=== PATIENT | female | born 1950 | race American Indian/Alaskan Native ===

== ENCOUNTER 2020-05-03 08:48 | Inpatient (IN) | payer MEDICARE ==
[2020-05-03] MEDS ORDERED: FAMOTIDINE 20 MG/2 ML INJ IV ONE (10:15)
[2020-05-03] MEDS ORDERED: SODIUM CHLORIDE 0.9% 1000 ML 1,000 ML IV ONE ×2 (10:15→12:09)
[2020-05-03] MEDS ORDERED: ONDANSETRON 4 MG/2 ML INJ IV ONE (10:15)
[2020-05-03] MEDS ORDERED: PANTOPRAZOLE 40 MG INJ IV ONE (10:15)
--- NOTE | 2020-05-03 11:03 | Emergency Department Report ---
ED GI Bleed HPI - General Chief complaint: GI Bleed Stated complaint: VOMITING BLOOD/WEAKNESS Time Seen by Provider: 05/03/20 10:04 Source: patient, EMS Mode of arrival: Stretcher Limitations: No Limitations - History of Present Illness Initial comments: Patient is a 69-year-old F O[place]i female with past medical history of hypertension diabetes who is presenting with upper GI bleed. Patient states is been vomiting since overnight. States there was coffee-ground type emesis. She denies abdominal pain but states she has some weakness. States there is been no fevers chills diarrhea cough cold or congestion. Patient states that she has not had these symptoms in the past. Severity scale (0 -10): 0 - Related Data Home Medications Medication Instructions Recorded Confirmed Last Taken Acetaminophen [7T Gummy Es] 500 mg PO ONCE 05/03/20 05/03/20 Unknown Meclizine HCl [Meclizine CHEW] 25 mg PO ONCE PRN 05/03/20 05/03/20 Unknown hydroCHLOROthiazide [HCTZ] 25 mg PO QDAY 05/03/20 05/03/20 Unknown Previous Rx's Medication Instructions Recorded Last Taken Type Loratadine (Nf) [Claritin] 10 mg PO DAILY #30 tablet 12/03/14 10/09/15 Rx amLODIPine [Norvasc] 5 mg PO DAILY #30 tab 12/03/14 10/09/15 Rx metFORMIN [Glucophage] 500 mg PO DAILY #30 tablet 12/03/14 10/09/15 Rx Allergies Allergy/AdvReac Type Severity Reaction Status Date / Time aspirin Allergy Nausea Verified 05/03/20 09:29 codeine Allergy Nausea Verified 05/03/20 09:29 hydrocodone Allergy Nausea Verified 05/03/20 09:29 lisinopril Allergy Swelling Verified 05/03/20 09:29 methylergonovine maleate Allergy Nausea Verified 05/03/20 09:29 [From Methergine] ED Review of Systems ROS: Stated complaint: VOMITING BLOOD/WEAKNESS Other details as noted in HPI Comment: All other systems reviewed and negative ED Past Medical Hx - Past Medical History Hx Hypertension: Yes Hx Diabetes: Yes Additional medical history: DJD - Surgical History Additional Surgical History: Tubaligation, left hand cyst - Social History Smoking Status: Current Some Day Smoker - Medications Home Medications: Home Medications Medication Instructions Recorded Confirmed Last Taken Type Loratadine (Nf) [Claritin] 10 mg PO DAILY #30 tablet 12/03/14 05/03/20 10/09/15 Rx amLODIPine [Norvasc] 5 mg PO DAILY #30 tab 12/03/14 05/03/20 10/09/15 Rx metFORMIN [Glucophage] 500 mg PO DAILY #30 tablet 12/03/14 05/03/20 10/09/15 Rx Acetaminophen [7T Gummy Es] 500 mg PO ONCE 05/03/20 05/03/20 Unknown History Meclizine HCl [Meclizine CHEW] 25 mg PO ONCE PRN 05/03/20 05/03/20 Unknown History hydroCHLOROthiazide [HCTZ] 25 mg PO QDAY 05/03/20 05/03/20 Unknown History ED Physical Exam - General Limitations: No Limitations General appearance: alert, in no apparent distress - Head Head exam: Present: atraumatic, normocephalic - Eye Eye exam: Present: normal appearance, PERRL, EOMI - ENT ENT exam: Present: mucous membranes moist - Neck Neck exam: Present: normal inspection - Respiratory Respiratory exam: Present: normal lung sounds bilaterally. Absent: respiratory distress, wheezes, rales, rhonchi - Cardiovascular Cardiovascular Exam: Present: regular rate, normal rhythm, normal heart sounds. Absent: systolic murmur, diastolic murmur, rubs, gallop - GI/Abdominal GI/Abdominal exam: Present: soft, normal bowel sounds. Absent: distended, tenderness, guarding, rebound - Extremities Exam Extremities exam: Present: normal inspection - Back Exam Back exam: Present: normal inspection - Neurological Exam Neurological exam: Present: alert, oriented X3 - Psychiatric Psychiatric exam: Present: normal affect, normal mood - Skin Skin exam: Present: warm, dry, intact, normal color. Absent: rash ED Course Vital Signs 05/03/20 05/03/20 05/03/20 09:00 09:03 09:46 Temperature 98.7 F Pulse Rate 113 H 109 H 111 H Respiratory 17 17 17 Rate Blood Pressure 110/62 107/62 Blood Pressure 109/64 [Left] O2 Sat by Pulse 93 97 97 Oximetry 05/03/20 05/03/20 10:46 12:00 Temperature Pulse Rate 107 H Respiratory 18 Rate Blood Pressure 108/61 102/60 Blood Pressure [Left] O2 Sat by Pulse 99 98 Oximetry ED Medical Decision Making - Lab Data Result diagrams: 05/03/20 10:38 05/03/20 10:38 Lab Results 05/03/20 05/03/20 05/03/20 Range/Units 10:38 10:38 10:38 WBC 8.2 (4.5-11.0) K/mm3 RBC 2.55 L (3.65-5.03) M/mm3 Hgb 8.3 L (10.1-14.3) gm/dl Hct 23.6 L (30.3-42.9) % MCV 93 (79-97) fl MCH 33 H (28-32) pg MCHC 35 H (30-34) % RDW 15.7 H (13.2-15.2) % Plt Count 112 L (140-440) K/mm3 Add Manual Diff Complete Total Counted 100 Seg Neuts % (Manual) 83.0 H (40.0-70.0) % Band Neutrophils % 1.0 % Lymphocytes % (Manual) 10.0 L (13.4-35.0) % Reactive Lymphs % (Man) 0 % Monocytes % (Manual) 5.0 (0.0-7.3) % Eosinophils % (Manual) 0 (0.0-4.3) % Basophils % (Manual) 0 (0.0-1.8) % Metamyelocytes % 1.0 % Myelocytes % 0 % Promyelocytes % 0 % Blast Cells % 0 % Nucleated RBC % Not Reportable Seg Neutrophils # Man 6.8 (1.8-7.7) K/mm3 Band Neutrophils # 0.1 K/mm3 Lymphocytes # (Manual) 0.8 L (1.2-5.4) K/mm3 Abs React Lymphs (Man) 0.0 K/mm3 Monocytes # (Manual) 0.4 (0.0-0.8) K/mm3 Eosinophils # (Manual) 0.0 (0.0-0.4) K/mm3 Basophils # (Manual) 0.0 (0.0-0.1) K/mm3 Metamyelocytes # 0.1 K/mm3 Myelocytes # 0.0 K/mm3 Promyelocytes # 0.0 K/mm3 Blast Cells # 0.0 K/mm3 WBC Morphology Not Reportable Hypersegmented Neuts Not Reportable Hyposegmented Neuts Not Reportable Hypogranular Neuts Not Reportable Smudge Cells Not Reportable Toxic Granulation Not Reportable Toxic Vacuolation Not Reportable Dohle Bodies Not Reportable Pelger-Huet Anomaly Not Reportable Virgil Rods Not Reportable Platelet Estimate Consistent w auto Clumped Platelets Not Reportable Plt Clumps, EDTA Not Reportable Large Platelets Not Reportable Giant Platelets Rare Platelet Satelliting Not Reportable Plt Morphology Comment Not Reportable RBC Morphology Not Reportable Dimorphic RBCs Not Reportable Polychromasia Not Reportable Hypochromasia Not Reportable Poikilocytosis Few Anisocytosis Few Microcytosis Not Reportable Macrocytosis Not Reportable Spherocytes Not Reportable Pappenheimer Bodies Not Reportable Sickle Cells Not Reportable Target Cells 2+ Tear Drop Cells Not Reportable Ovalocytes Not Reportable Helmet Cells Not Reportable Cannon-[place] Bodies Not Reportable [place] Rings Not Reportable [place] Cells Not Reportable Bite Cells Not Reportable Crenated Cell Not Reportable Elliptocytes Not Reportable Acanthocytes (Spur) Not Reportable Rouleaux Not Reportable Hemoglobin C Crystals Not Reportable Schistocytes Not Reportable Malaria parasites Not Reportable Ash Bodies Not Reportable Hem Pathologist Commnt No PT 18.9 H (12.2-14.9) Sec. INR 1.56 H (0.87-1.13) APTT 40.2 H (24.2-36.6) Sec. Sodium 130 L (137-145) mmol/L Potassium 3.2 L (3.6-5.0) mmol/L Chloride 87.6 L (98-107) mmol/L Carbon Dioxide 28 (22-30) mmol/L Anion Gap 18 mmol/L BUN 11 (7-17) mg/dL Creatinine 1.1 (0.6-1.2) mg/dL Estimated GFR 60 ml/min BUN/Creatinine Ratio 10 % Glucose 160 H (65-100) mg/dL Calcium 8.2 L (8.4-10.2) mg/dL Total Bilirubin 8.20 H (0.1-1.2) mg/dL AST 159 H (5-40) units/L ALT 42 (7-56) units/L Alkaline Phosphatase 163 H (35-129) units/L Total Protein 6.4 (6.3-8.2) g/dL Albumin 2.4 L (3.9-5) g/dL Albumin/Globulin Ratio 0.6 % Lipase 23 (13-60) units/L - Medical Decision Making Patient is a 69-year-old F [place] female who is presenting with GI bleed. NG tube was inserted by nursing staff which did show coffee-ground emesis and very dark-colored gastric contents consistent with upper GI bleed. Patient did have elevation of her ALT and bilirubin. CT has been ordered. GI will be consulted and the patient will be admitted to the hospitalist service for further management. Critical Care Time: Yes (30) Critical care attestation.: If time is entered above; I have spent that time in minutes in the direct care of this critically ill patient, excluding procedure time. ED Disposition Clinical Impression: Upper GI hemorrhage, Hyperbilirubinemia, Dehydration, Hyponatremia Disposition: OP ADMIT IP TO THIS HOSP Is pt being admited?: Yes Does the pt Need Aspirin: No Condition: Stable Forms: Accompanied Note Time of Disposition: 12:31
[2020-05-03 11:20] LABS: INR 1.56 (0.87-1.13)
[2020-05-03 11:21] LABS: Partial Thromboplastin Time 40.2 Sec. (24.2-36.6)
[2020-05-03 11:29] LABS: Hematocrit 23.6 % (30.3-42.9); Hemoglobin 8.3 gm/dl (10.1-14.3); Mean Corpuscular HGB Conc 35 % (30-34); Mean Corpuscular Volume 93 fl (79-97); Platelet Count 112 K/mm3 (140-440); Red Blood Count 2.55 M/mm3 (3.65-5.03); Red Cell Distribution Width 15.7 % (13.2-15.2)
[2020-05-03 12:01] LABS: Albumin 2.4 g/dL (3.9-5); Anisocytosis Few; Band Neutrophils # (Manual) 0.1 K/mm3; Basophils % (Manual) 0 % (0.0-1.8); Calcium 8.2 mg/dL (8.4-10.2); Eosinophils % (Manual) 0 % (0.0-4.3); Poikilocytosis Few; Total Cells Counted 100
[2020-05-03 12:02] LABS: Giant Platelets Rare; Platelet Estimate Consistent w Auto; Target Cells 2+
--- NOTE | 2020-05-03 13:08 | Cat Scan Report ---
CT abdomen pelvis w con INDICATION: gi bleed. TECHNIQUE: All CT scans at this location are performed using the following dose modulation technique: Automated exposure control. CONTRAST: Omnipaque 300, 100 cc COMPARISON: None available. CT ABDOMEN: Evaluation of the parenchymal organs demonstrates a cirrhotic configuration of the liver. Multiple regenerative nodules are seen throughout both hepatic lobes measuring less than 1 cm. A hyp odense lesion within the lateral aspect of the right hepatic lobe (series 2, image 43) measures 1.9 c m. The remaining parenchymal organs including the spleen are unremarkable. Large varices are seen at the gastrohepatic ligament. A large splenorenal shunt is present. Mild ascites and mild small bowel and colonic thickening is seen. Negative for bowel distention. The gallbladder contains stones. Diffuse symmetric wall edema is present without adjacent inflammatio n. CT PELVIS: The appendix is normal. Mild ascites is seen. IMPRESSION: 1. Cirrhosis with portal hypertension including varices, mild ascites and nodular regeneration of the liver. 2. Indeterminate right hepatic lesion. Follow-up multiphase CT is recommended. 3. Gallstones with symmetric gallbladder wall edema. This is likely on the basis of underlying hepati c disease. 4. Mild thickening of the colon and proximal small bowel is nonspecific in the setting of hepatic dis ease. Signer Name: Juan Vaughn MD Signed: 05/03/2020 1:04 PM Workstation Name: [id number]
--- NOTE | 2020-05-03 13:09 | XRay Report ---
ABDOMEN 1 VIEW(S) INDICATION / CLINICAL INFORMATION: NGT placement. COMPARISON: None available. FINDINGS: TUBES / LINES: NG tube in satisfactory position. BOWEL GAS PATTERN: No significant abnormality. ADDITIONAL FINDINGS: No significant additional findings. IMPRESSION: Satisfactory NG tube placement. Signer Name: Juan Vaughn MD Signed: 05/03/2020 1:05 PM Workstation Name: [id number]
[2020-05-03] MEDS ORDERED: SODIUM CHLORIDE 0.9% 1000 ML 1,000 ML ONE (13:23)
[2020-05-03] MEDS: PANTOPRAZOLE 80 MG in SODIUM CHLORIDE 0.9% 100 ML IV SCH (13:24)
[2020-05-03] MEDS ORDERED: WATER FOR IRRIG STERILE 1,000 ML BOTTLE ONE (13:36)
[2020-05-03] MEDS ORDERED: WATER FOR IRRIG STERILE 250 ML BOTTLE IR ONE (13:36)
--- NOTE | 2020-05-03 13:58 | Anesthesia Day of Surgery ---
Anesthesia Day of Surgery - Day of Surgery Patient Examined: Yes Patient H&P Reviewed: Yes Patient is NPO: Yes
--- NOTE | 2020-05-03 13:59 | Anesthesia Consultation ---
Anesthesia Consult and Med Hx Date of service: 05/03/20 - Airway Anesthetic Teeth Evaluation: Poor (Loose) ROM Head & Neck: Adequate Mental/Hyoid Distance: Adequate Mallampati Class: Class III Intubation Access Assessment: Probably Good - Pre-Operative Health Status ASA Pre-Surgery Classification: ASA3, Emergency Proposed Anesthetic Plan: MAC - Pulmonary Hx Smoking: Yes (1-2 cig per day) - Cardiovascular System Hx Hypertension: Yes - Central Nervous System Hx Neuromuscular Disorder: Yes (rheumatoid arthritis. Limited activity-tree fell on her) - Gastrointestinal Hx Gastroesophageal Reflux Disease: Yes (UGI bleed now) - Endocrine Hx Liver Disease: Yes (Elevated LFTs) Hx Non-Insulin Dependent Diabetes: Yes (metformin) - Hematic Hx Anemia: Yes Hx Sickle Cell Disease: No
[2020-05-03] MEDS ORDERED: propofoL 200 MG/20 ML VIAL IV ONE (14:01)
[2020-05-03] MEDS ORDERED: LIDOCAINE MPF (2%) 20 MG/1 ML VIAL 5 ML ONE (15:04)
--- NOTE | 2020-05-03 15:48 | Operative Report ---
PROCEDURE: Esophagogastroduodenoscopy with bleeding therapy. INDICATIONS: 1. Anemia. 2. Gastrointestinal bleed. MEDICATIONS: Propofol per FILLER SHAKER. COMPLICATIONS: None. DESCRIPTION OF PROCEDURE: The patient brought to procedure suite. The patient had the procedure discussed with her at length. All risks, complications, and benefits discussed, which the patient signed for the procedure to be performed. The patient was placed in left lateral decubitus position. Mouth block was placed in the patient's oral cavity. After adequate sedation medication as above, endoscope placed in the mouth and brought to level of the second portion of duodenum. Retroflexion view performed. The patient's vital signs remained stable throughout the procedure. FINDINGS: There was possible grade 1 varices noted in the distal esophagus, but no stigmata or signs of bleeding were noted. A small linear tear was noted at the GE junction, but no stigmata of bleeding was noted from that area. The remaining esophagus otherwise appeared to be normal. There is old blood that was suctioned and removed from the stomach. In the proximal antrum along the area of the lesser curvature, there was noted to be approximately 8 mm pigmented vessel with a very small clot. Whether or not this may represent a Dieulafoy lesion. No active bleeding was noted from this area. Extensive search was made of the remaining stomach as well as duodenum with no other etiology noted. This may have been the source of bleeding. A heater probe was applied to this area with good result. Post-procedure appearance was satisfactory. The patient tolerated the procedure well. No complications during the procedure. IMPRESSION: 1. Possible grade 1 varices, but no stigmata of bleeding noted along the esophagus. 2. Medium hiatal hernia. 3. Old blood was removed from the stomach. 4. Pigmented vessel, proximal antrum, status post bleeding therapy. 5. Otherwise, benign EGD. RECOMMENDATIONS: 1. Follow hematocrit and transfuse as needed. 2. PPI b.i.d. 3. We will review CT scan when results available. 4. We will assess for possible liver disease. 5. We will followup in a.m. JOB# [id number] [facility]
[2020-05-03] MEDS ORDERED: ONDANSETRON 4 MG/2 ML INJ IV PRN (16:13)
[2020-05-03] MEDS ORDERED: ACETAMINOPHEN 325 MG TAB PO PRN (16:13)
--- NOTE | 2020-05-03 16:16 | History and Physical Report ---
History of Present Illness Date of examination: 05/03/20 Date of admission: 05/03/20 12:32 Chief complaint: Coffee ground emesis History of present illness: 69-year-old female with a medical history of hypertension, liver disease admitted with chief complaint of bloody vomiting. She mentioned that she has multiple episodes of coffee-ground vomiting for the past 24 hours. She reports any previous history of similar episode. She denies abdominal pain but states sh e has some weakness. States there is been no fevers chills diarrhea cough cold or congestion. Patient states that she has not had these symptoms in the past Past History Past Medical History: hypertension, liver disease Social history: alcohol abuse Medications and Allergies Allergies Allergy/AdvReac Type Severity Reaction Status Date / Time aspirin Allergy Nausea Verified 05/03/20 09:29 codeine Allergy Nausea Verified 05/03/20 09:29 hydrocodone Allergy Nausea Verified 05/03/20 09:29 lisinopril Allergy Swelling Verified 05/03/20 09:29 methylergonovine maleate Allergy Nausea Verified 05/03/20 09:29 [From Methergine] Home Medications Medication Instructions Recorded Confirmed Last Taken Type Loratadine (Nf) [Claritin] 10 mg PO DAILY #30 tablet 12/03/14 05/03/20 10/09/15 Rx amLODIPine [Norvasc] 5 mg PO DAILY #30 tab 12/03/14 05/03/20 10/09/15 Rx metFORMIN [Glucophage] 500 mg PO DAILY #30 tablet 12/03/14 05/03/20 10/09/15 Rx Acetaminophen [7T Gummy Es] 500 mg PO ONCE 05/03/20 05/03/20 Unknown History Meclizine HCl [Meclizine CHEW] 25 mg PO ONCE PRN 05/03/20 05/03/20 Unknown History hydroCHLOROthiazide [HCTZ] 25 mg PO QDAY 05/03/20 05/03/20 Unknown History Active Meds: Active Medications Sodium Chloride (Nacl 0.9% 1000 Ml) 1,000 mls @ 125 mls/hr IV ONCE ONE Stop: 05/03/20 20:08 Last Admin: 05/03/20 12:59 Dose: 125 mls/hr Documented by: Pantoprazole Sodium 80 mg/ (Sodium Chloride) 100 mls @ 10 mls/hr IV DIRECT FAUSTO Last Admin: 05/03/20 13:24 Dose: 8 mg/hr, 10 mls/hr Documented by: Sodium Chloride (Nacl 0.9% 1000 Ml) 1,000 mls @ 50 mls/hr IV DIRECT FAUSTO Review of Systems Gastrointestinal: coffee ground emesis (resolved) Exam - Constitutional Vitals: Temp Pulse Resp BP Pulse Ox 97.5 F L 94 H 18 116/77 96 05/03/20 14:48 05/03/20 15:04 05/03/20 15:04 05/03/20 15:04 05/03/20 15:04 General appearance: Present: no acute distress, well-nourished - EENT Eyes: Present: PERRL ENT: hearing intact, clear oral mucosa - Neck Neck: Present: supple, normal ROM - Respiratory Respiratory effort: normal Respiratory: bilateral: CTA - Cardiovascular Heart Sounds: Present: S1 & S2. Absent: rub, click - Extremities Extremities: pulses symmetrical, No edema Peripheral Pulses: within normal limits - Abdominal General gastrointestinal: Present: soft, distended, normal bowel sounds Female genitourinary: Present: normal - Integumentary Integumentary: Present: clear, warm, dry - Musculoskeletal Musculoskeletal: gait normal, strength equal bilaterally - Psychiatric Psychiatric: appropriate mood/affect, intact judgment & insight - Neurologic Neurologic: CNII-XII intact, moves all extremities Results - Labs CBC & Chem 7: 05/04/20 04:49 05/04/20 04:49 Labs: Laboratory Last Values WBC 8.2 K/mm3 (4.5-11.0) 05/03/20 10:38 RBC 2.55 M/mm3 (3.65-5.03) L 05/03/20 10:38 Hgb 8.3 gm/dl (10.1-14.3) L 05/03/20 10:38 Hct 23.6 % (30.3-42.9) L 05/03/20 10:38 MCV 93 fl (79-97) 05/03/20 10:38 MCH 33 pg (28-32) H 05/03/20 10:38 MCHC 35 % (30-34) H 05/03/20 10:38 RDW 15.7 % (13.2-15.2) H 05/03/20 10:38 Plt Count 112 K/mm3 (140-440) L 05/03/20 10:38 Add Manual Diff Complete 05/03/20 10:38 Total Counted 100 05/03/20 10:38 Seg Neuts % (Manual) 83.0 % (40.0-70.0) H 05/03/20 10:38 Band Neutrophils % 1.0 % 05/03/20 10:38 Lymphocytes % (Manual) 10.0 % (13.4-35.0) L 05/03/20 10:38 Reactive Lymphs % (Man) 0 % 05/03/20 10:38 Monocytes % (Manual) 5.0 % (0.0-7.3) 05/03/20 10:38 Eosinophils % (Manual) 0 % (0.0-4.3) 05/03/20 10:38 Basophils % (Manual) 0 % (0.0-1.8) 05/03/20 10:38 Metamyelocytes % 1.0 % 05/03/20 10:38 Myelocytes % 0 % 05/03/20 10:38 Promyelocytes % 0 % 05/03/20 10:38 Blast Cells % 0 % 05/03/20 10:38 Nucleated RBC % Not Reportable 05/03/20 10:38 Seg Neutrophils # Man 6.8 K/mm3 (1.8-7.7) 05/03/20 10:38 Band Neutrophils # 0.1 K/mm3 05/03/20 10:38 Lymphocytes # (Manual) 0.8 K/mm3 (1.2-5.4) L 05/03/20 10:38 Abs React Lymphs (Man) 0.0 K/mm3 05/03/20 10:38 Monocytes # (Manual) 0.4 K/mm3 (0.0-0.8) 05/03/20 10:38 Eosinophils # (Manual) 0.0 K/mm3 (0.0-0.4) 05/03/20 10:38 Basophils # (Manual) 0.0 K/mm3 (0.0-0.1) 05/03/20 10:38 Metamyelocytes # 0.1 K/mm3 05/03/20 10:38 Myelocytes # 0.0 K/mm3 05/03/20 10:38 Promyelocytes # 0.0 K/mm3 05/03/20 10:38 Blast Cells # 0.0 K/mm3 05/03/20 10:38 WBC Morphology Not Reportable 05/03/20 10:38 Hypersegmented Neuts Not Reportable 05/03/20 10:38 Hyposegmented Neuts Not Reportable 05/03/20 10:38 Hypogranular Neuts Not Reportable 05/03/20 10:38 Smudge Cells Not Reportable 05/03/20 10:38 Toxic Granulation Not Reportable 05/03/20 10:38 Toxic Vacuolation Not Reportable 05/03/20 10:38 Dohle Bodies Not Reportable 05/03/20 10:38 Pelger-Huet Anomaly Not Reportable 05/03/20 10:38 Virgil Rods Not Reportable 05/03/20 10:38 Platelet Estimate Consistent w auto 05/03/20 10:38 Clumped Platelets Not Reportable 05/03/20 10:38 Plt Clumps, EDTA Not Reportable 05/03/20 10:38 Large Platelets Not Reportable 05/03/20 10:38 Giant Platelets Rare 05/03/20 10:38 Platelet Satelliting Not Reportable 05/03/20 10:38 Plt Morphology Comment Not Reportable 05/03/20 10:38 RBC Morphology Not Reportable 05/03/20 10:38 Dimorphic RBCs Not Reportable 05/03/20 10:38 Polychromasia Not Reportable 05/03/20 10:38 Hypochromasia Not Reportable 05/03/20 10:38 Poikilocytosis Few 05/03/20 10:38 Anisocytosis Few 05/03/20 10:38 Microcytosis Not Reportable 05/03/20 10:38 Macrocytosis Not Reportable 05/03/20 10:38 Spherocytes Not Reportable 05/03/20 10:38 Pappenheimer Bodies Not Reportable 05/03/20 10:38 Sickle Cells Not Reportable 05/03/20 10:38 Target Cells 2+ 05/03/20 10:38 Tear Drop Cells Not Reportable 05/03/20 10:38 Ovalocytes Not Reportable 05/03/20 10:38 Helmet Cells Not Reportable 05/03/20 10:38 Cannon-[place] Bodies Not Reportable 05/03/20 10:38 [place] Rings Not Reportable 05/03/20 10:38 [place] Cells Not Reportable 05/03/20 10:38 Bite Cells Not Reportable 05/03/20 10:38 Crenated Cell Not Reportable 05/03/20 10:38 Elliptocytes Not Reportable 05/03/20 10:38 Acanthocytes (Spur) Not Reportable 05/03/20 10:38 Rouleaux Not Reportable 05/03/20 10:38 Hemoglobin C Crystals Not Reportable 05/03/20 10:38 Schistocytes Not Reportable 05/03/20 10:38 Malaria parasites Not Reportable 05/03/20 10:38 Ash Bodies Not Reportable 05/03/20 10:38 Hem Pathologist Commnt No 05/03/20 10:38 PT 18.9 Sec. (12.2-14.9) H 05/03/20 10:38 INR 1.56 (0.87-1.13) H 05/03/20 10:38 APTT 40.2 Sec. (24.2-36.6) H 05/03/20 10:38 Sodium 130 mmol/L (137-145) L 05/03/20 10:38 Potassium 3.2 mmol/L (3.6-5.0) L 05/03/20 10:38 Chloride 87.6 mmol/L (98-107) L 05/03/20 10:38 Carbon Dioxide 28 mmol/L (22-30) 05/03/20 10:38 Anion Gap 18 mmol/L 05/03/20 10:38 BUN 11 mg/dL (7-17) 05/03/20 10:38 Creatinine 1.1 mg/dL (0.6-1.2) 05/03/20 10:38 Estimated GFR 60 ml/min 05/03/20 10:38 BUN/Creatinine Ratio 10 % 05/03/20 10:38 Glucose 160 mg/dL (65-100) H 05/03/20 10:38 Calcium 8.2 mg/dL (8.4-10.2) L 05/03/20 10:38 Total Bilirubin 8.20 mg/dL (0.1-1.2) H 05/03/20 10:38 AST 159 units/L (5-40) H 05/03/20 10:38 ALT 42 units/L (7-56) 05/03/20 10:38 Alkaline Phosphatase 163 units/L (35-129) H 05/03/20 10:38 Total Protein 6.4 g/dL (6.3-8.2) 05/03/20 10:38 Albumin 2.4 g/dL (3.9-5) L 05/03/20 10:38 Albumin/Globulin Ratio 0.6 % 05/03/20 10:38 Lipase 23 units/L (13-60) 05/03/20 10:38 Dunn/IV: Voiding Method Toilet IV Catheter Type [Left Peripheral IV Antecubital] Assessment and Plan - Patient Problems (1) Upper GI hemorrhage Current Visit: Yes Status: Acute Plan to address problem: Has coffee ground emesis - multiple episodes. Trend H/H GI to do EGD Protonix Zofran for vomiting (2) Hyponatremia Current Visit: Yes Status: Acute Plan to address problem: Trend sodium (3) Hyperbilirubinemia Current Visit: Yes Status: Acute Plan to address problem: Likely from alcohol abuse Will continue to monitor (4) Hypertension Current Visit: Yes Status: Acute Plan to address problem: Monitor BP (5) Alcoholic liver disease Current Visit: Yes Status: Acute Plan to address problem: Drinks alcohol occasionally Last drink was 2 days ago She has elevated LFTs with elevated bilirubin Her INR is also elevated. Patient has been advised to stop alcohol use (6) DVT prophylaxis Current Visit: Yes Status: Acute Plan to address problem: No chemical prophylaxis.
--- NOTE | 2020-05-03 18:26 | Post Operative Note ---
Pre-op diagnosis: gi bleed Post-op diagnosis: same Findings: EGD: hiatal hernia - gastritis - pigmented vessel antrum w/ erythema, probable source, s/p gold probe treatment - negative other Procedure: EGD w/ bleeding therapy Anesthesia: MAC Surgeon: LULU HUGHES Estimated blood loss: none Pathology: list Specimen disposition: to lab Condition: stable Disposition: floor
[2020-05-03] MEDS: POTASSIUM CHLORIDE 10 MEQ 10 MEQ/100 ML BAG IV SCH ×3 (19:23→23:29)
[2020-05-04] MEDS: POTASSIUM CHLORIDE 10 MEQ 10 MEQ/100 ML BAG IV SCH (01:42)
--- NOTE | 2020-05-04 02:31 | Consultation ---
REFERRING PHYSICIAN: La Crowe MD INDICATION: 1. Gastrointestinal bleed. 2. Anemia. HISTORY OF PRESENT ILLNESS: The patient is a 69-year-old black female with history of hypertension, diabetes, presents for upper GI bleed. The patient reports 1 day of coffee-ground emesis. She reports aspirin use. She denies any history of GI bleeding in the past. She denies melena. The patient subsequently came to Emergency Room, was evaluated and admitted and GI consulted. She denies any other specific complaints. PAST MEDICAL HISTORY: 1. Hypertension. 2. Diabetes. MEDICATIONS: Reviewed and updated in chart. ALLERGIES: No known drug allergies. SOCIAL HISTORY: Denies alcohol, tobacco or drug abuse. FAMILY HISTORY: Negative for colon cancer, IBD, or liver disease. REVIEW OF SYSTEMS: GENERAL: Reports some mild weakness. HEENT: No visual complaints or tinnitus. PULMONARY: No shortness of breath. No cough. No chest pain. GASTROINTESTINAL: Reports hematemesis. All points of 13-point review of systems otherwise negative. PHYSICAL EXAMINATION: VITAL SIGNS: Temperature of 98.7, pulse 111, respirations 18, blood pressure 118/66. GENERAL: Fairly nourished female, in no acute distress. HEENT: Pupils equal, round and reactive. PULMONARY: Clear to auscultation bilaterally. CARDIOVASCULAR: Regular rate and rhythm. Normal S1, S2. ABDOMEN: nt,nd, soft. SKIN: No obvious rashes. LABORATORY DATA: Pertinent for a white count of 8.2, hemoglobin and hematocrit of 8.3 and 23.6, platelet count of 112. Chem-7: Sodium of 130, potassium 3.2, chloride 87, CO2 of 28, BUN and creatinine of 11 and 1.1, total bilirubin of 8.2. AST and ALT of 159 and 42, alkaline phosphatase of 163. INR of 1.56. CT scan of abdomen and pelvis with contrast results pending. ASSESSMENT AND PLAN: A 69-year-old female with a reported vague history of liver disease and labs, which are more consistent with alcohol like AST, ALT configuration as well as increased liver function tests, now presents with signs and symptoms of upper gastrointestinal bleed. PLAN: 1. We will review CT scan. 2. Follow hematocrit and transfuse as needed. 3. PPI IV b.i.d. 4. Plan EGD today with further recommendation based the EGD results. JOB# [id number] CAB/NTS OCTAVIOD
[2020-05-04] MEDS: PANTOPRAZOLE 80 MG in SODIUM CHLORIDE 0.9% 100 ML IV SCH (03:03)
[2020-05-04] MEDS: SODIUM CHLORIDE 0.9% 1000 ML 1,000 ML IV SCH (04:31)
[2020-05-04 05:28] LABS: Hematocrit 20.9 % (30.3-42.9); Hemoglobin 7.3 gm/dl (10.1-14.3); Mean Corpuscular HGB Conc 35 % (30-34); Mean Corpuscular Volume 93 fl (79-97); Platelet Count 108 K/mm3 (140-440); Red Blood Count 2.25 M/mm3 (3.65-5.03); Red Cell Distribution Width 16.4 % (13.2-15.2)
[2020-05-04 05:38] LABS: Calcium 8.1 mg/dL (8.4-10.2)
[2020-05-04 06:42] LABS: Anisocytosis 1+; Hypochromasia 2+; Total Cells Counted 100
[2020-05-04 06:43] LABS: Ovalocytes Few; Platelet Estimate Consistent w Auto; Spherocytes Few
[2020-05-04 09:03] LABS: Hematocrit 20.4 % (30.3-42.9); Hemoglobin 7.3 gm/dl (10.1-14.3)
[2020-05-04] MEDS ORDERED: ACETAMINOPHEN 325 MG TAB PO PRN (10:12)
[2020-05-04] MEDS: LACTULOSE 20 GM/30 ML ORAL LIQD PO SCH ×2 (10:13→22:34)
--- NOTE | 2020-05-04 10:21 | Gastroenterology Progress Note ---
Assessment and Plan - Patient Problems (1) Cirrhosis Current Visit: Yes Status: Acute Plan to address problem: - Unclear etiology, but obese/diabetic, and old notes in chart mention EtOH abuse. Will send hepatitis panel. - Final read of CT pending, but appears to show SM, cirrhosis, and ascites, and labs consistent with ESLD. - Will start MVI and xifaxan for confusion. - Grade I varices at endoscopy, so will need beta don when stabilized. - Further w/u when mental status improved, but since following commands, and no N/V, OK to advance to clear liquid diet. (2) Upper GI hemorrhage Current Visit: Yes Status: Acute Plan to address problem: - Grade I EV at EGD, but bleeding source appears to be vascular lesion in the antrum - unclear if AVM, or small ulcer with visible vessel. - Will convert protonix to IV BID, not gtt, and advance diet since no further melena/hematemesis. - Avoid all NSAIDs at present given cirrhosis. - Heparin or lovenox SQ for DVT PPY OK starting Wednesday if stable and no gross bleeding. Subjective Date of service: 05/04/20 Principal diagnosis: GIB, Cirrhosis Interval history: The patient has had no hematemesis nor melena overnight. Asking for liquids, but confused per the nursing staff. Denies abdominal pain, and is following commands. Objective - Constitutional Vitals: Temp Pulse Resp BP Pulse Ox 98.0 F 111 H 20 116/58 95 05/04/20 04:29 05/04/20 04:29 05/04/20 04:29 05/04/20 04:29 05/04/20 04:29 General appearance: no acute distress - EENT ENT: hearing intact, clear oral mucosa, poor dentition, no thrush - Neck Neck: supple, normal ROM - Respiratory Respiratory effort: normal Respiratory: bilateral: CTA - Cardiovascular Rhythm: regular Heart Sounds: Present: S1 & S2 - Gastrointestinal General gastrointestinal: Present: soft, non-tender, distended (Moderate ascites) - Labs CBC & Chem 7: 05/04/20 08:31 05/04/20 04:49 Labs: Laboratory Results - last 24 hr 05/03/20 05/03/20 05/03/20 10:38 10:38 10:38 WBC 8.2 RBC 2.55 L Hgb 8.3 L Hct 23.6 L MCV 93 MCH 33 H MCHC 35 H RDW 15.7 H Plt Count 112 L Lymph % (Auto) [place] % (Auto) Eos % (Auto) Baso % (Auto) Lymph # Atlantic # Eos # Baso # Add Manual Diff Complete Total Counted 100 Seg Neuts % (Manual) 83.0 H Band Neutrophils % 1.0 Lymphocytes % (Manual) 10.0 L Reactive Lymphs % (Man) 0 Monocytes % (Manual) 5.0 Eosinophils % (Manual) 0 Basophils % (Manual) 0 Metamyelocytes % 1.0 Myelocytes % 0 Promyelocytes % 0 Blast Cells % 0 Nucleated RBC % Not Reportable Seg Neutrophils # Seg Neutrophils # Man 6.8 Band Neutrophils # 0.1 Lymphocytes # (Manual) 0.8 L Abs React Lymphs (Man) 0.0 Monocytes # (Manual) 0.4 Eosinophils # (Manual) 0.0 Basophils # (Manual) 0.0 Metamyelocytes # 0.1 Myelocytes # 0.0 Promyelocytes # 0.0 Blast Cells # 0.0 WBC Morphology Not Reportable Hypersegmented Neuts Not Reportable Hyposegmented Neuts Not Reportable Hypogranular Neuts Not Reportable Smudge Cells Not Reportable Toxic Granulation Not Reportable Toxic Vacuolation Not Reportable Dohle Bodies Not Reportable Pelger-Huet Anomaly Not Reportable Virgil Rods Not Reportable Platelet Estimate Consistent w auto Clumped Platelets Not Reportable Plt Clumps, EDTA Not Reportable Large Platelets Not Reportable Giant Platelets Rare Platelet Satelliting Not Reportable Plt Morphology Comment Not Reportable RBC Morphology Not Reportable Dimorphic RBCs Not Reportable Polychromasia Not Reportable Hypochromasia Not Reportable Poikilocytosis Few Anisocytosis Few Microcytosis Not Reportable Macrocytosis Not Reportable Spherocytes Not Reportable Pappenheimer Bodies Not Reportable Sickle Cells Not Reportable Target Cells 2+ Tear Drop Cells Not Reportable Ovalocytes Not Reportable Helmet Cells Not Reportable Cannon-Centrahoma Bodies Not Reportable Freeport Rings Not Reportable Tomah Cells Not Reportable Bite Cells Not Reportable Crenated Cell Not Reportable Elliptocytes Not Reportable Acanthocytes (Spur) Not Reportable Rouleaux Not Reportable Hemoglobin C Crystals Not Reportable Schistocytes Not Reportable Malaria parasites Not Reportable Ash Bodies Not Reportable Hem Pathologist Commnt No PT 18.9 H INR 1.56 H APTT 40.2 H Sodium 130 L Potassium 3.2 L Chloride 87.6 L Carbon Dioxide 28 Anion Gap 18 BUN 11 Creatinine 1.1 Estimated GFR 60 BUN/Creatinine Ratio 10 Glucose 160 H Calcium 8.2 L Total Bilirubin 8.20 H AST 159 H ALT 42 Alkaline Phosphatase 163 H Total Protein 6.4 Albumin 2.4 L Albumin/Globulin Ratio 0.6 Lipase 23 05/04/20 05/04/20 05/04/20 04:49 04:49 08:31 WBC 11.5 H RBC 2.25 L Hgb 7.3 L 7.3 L Hct 20.9 L 20.4 L MCV 93 MCH 33 H MCHC 35 H RDW 16.4 H Plt Count 108 L Lymph % (Auto) Not Reportable Atlantic % (Auto) Not Reportable Eos % (Auto) Not Reportable Baso % (Auto) Not Reportable Lymph # Not Reportable [place] # Not Reportable Eos # Not Reportable Baso # Not Reportable Add Manual Diff Complete Total Counted 100 Seg Neuts % (Manual) 32.0 L Band Neutrophils % 0 Lymphocytes % (Manual) 47.0 H Reactive Lymphs % (Man) 0 Monocytes % (Manual) 5.0 Eosinophils % (Manual) 12.0 H Basophils % (Manual) 4.0 H Metamyelocytes % 0 Myelocytes % 0 Promyelocytes % 0 Blast Cells % 0 Nucleated RBC % Not Reportable Seg Neutrophils # Not Reportable Seg Neutrophils # Man 3.7 Band Neutrophils # 0.0 Lymphocytes # (Manual) 5.4 Abs React Lymphs (Man) 0.0 Monocytes # (Manual) 0.6 Eosinophils # (Manual) 1.4 H Basophils # (Manual) 0.5 H Metamyelocytes # 0.0 Myelocytes # 0.0 Promyelocytes # 0.0 Blast Cells # 0.0 WBC Morphology Not Reportable Hypersegmented Neuts Not Reportable Hyposegmented Neuts Not Reportable Hypogranular Neuts Not Reportable Smudge Cells Not Reportable Toxic Granulation Not Reportable Toxic Vacuolation Not Reportable Dohle Bodies Not Reportable Pelger-Huet Anomaly Not Reportable Virgil Rods Not Reportable Platelet Estimate Consistent w auto Clumped Platelets Not Reportable Plt Clumps, EDTA Not Reportable Large Platelets Not Reportable Giant Platelets Not Reportable Platelet Satelliting Not Reportable Plt Morphology Comment Not Reportable RBC Morphology Not Reportable Dimorphic RBCs Not Reportable Polychromasia Not Reportable Hypochromasia 2+ Poikilocytosis Not Reportable Anisocytosis 1+ Microcytosis Not Reportable Macrocytosis Not Reportable Spherocytes Few Pappenheimer Bodies Not Reportable Sickle Cells Not Reportable Target Cells Not Reportable Tear Drop Cells Not Reportable Ovalocytes Few Helmet Cells Not Reportable Cannon-Centrahoma Bodies Not Reportable Freeport Rings Not Reportable Tomah Cells Not Reportable Bite Cells Not Reportable Crenated Cell Not Reportable Elliptocytes Not Reportable Acanthocytes (Spur) Not Reportable Rouleaux Not Reportable Hemoglobin C Crystals Not Reportable Schistocytes Not Reportable Malaria parasites Not Reportable Ash Bodies Not Reportable Hem Pathologist Commnt No PT INR APTT Sodium 133 L Potassium 3.6 Chloride 91.4 L Carbon Dioxide 27 Anion Gap 18 BUN 21 H Creatinine 1.1 Estimated GFR 60 BUN/Creatinine Ratio 19 Glucose 112 H Calcium 8.1 L Total Bilirubin AST ALT Alkaline Phosphatase Total Protein Albumin Albumin/Globulin Ratio Lipase
--- NOTE | 2020-05-04 10:41 | Progress Note ---
Assessment and Plan Assessment and plan: 69-year-old female with a medical history of hypertension, liver disease admitted with chief complaint of bloody vomiting. She mentioned that she has multiple episodes of coffee-ground vomiting for the past 24 hours. She reports any previous history of similar episode. She denies abdominal pain but states she has some weakness. States there is been no fevers chills diarrhea cough cold or congestion. Patient states that she has not had these symptoms in the past In the ER, her hemoglobin was 8 with elevated liver enzymes, bilirubin and INR. GI was consulted for EGD 05/03. Patient had an EGD that showed grade 1 esophageal varices with no bleeding. Bleeding appears to be a vascular lesion in the antrum and it is unclear if AVM or small ulcer with visible vessel. Patient continues on PPI. 05/04. Patient hemoglobin this morning is 7.3. Patient denies any bloody vomiting or hematochezia. Patient reportedly confused. We will check ammonia levels. Started on lactulose for now. GI following. Hepatitis panel ordered. As per GI, patient will need beta-don when stabilized for management of varices. - Patient Problems (1) Upper GI hemorrhage Current Visit: Yes Status: Acute Plan to address problem: Had coffee ground emesis - multiple episodes. Patient had EGD that showed stage I esophageal varices with no bleeding. But she has bleeding from visible vessel which could be AVM or gastric ulcer with vessel. Continue PPI-switch from drip to IV twice daily. Trend H/H Zofran PRN for vomiting Patient will need to have a beta-don for esophageal varices when stable. GI recommendations appreciated (2) Hyponatremia Current Visit: Yes Status: Acute Plan to address problem: Likely from hypervolemia from liver cirrhosis Continue to monitor sodium levels (3) Hyperbilirubinemia Current Visit: Yes Status: Acute Plan to address problem: Likely from alcohol abuse Will continue to monitor (4) Hypertension Current Visit: Yes Status: Acute Plan to address problem: Monitor BP (5) Alcoholic liver disease Current Visit: Yes Status: Acute Plan to address problem: She has a history of alcohol abuse. She has elevated LFTs with elevated bilirubin Her INR is also elevated. Patient has been advised to stop alcohol use Hepatitis panel ordered GI following (6) Acute metabolic encephalopathy Current Visit: Yes Status: Acute Plan to address problem: Patient reportedly slightly confused this morning. Check ammonia levels Start low-dose lactulose for now (7) DVT prophylaxis Current Visit: Yes Status: Acute Plan to address problem: No chemical prophylaxis for now due to GI bleed History Interval history: See assessment and plan Hospitalist Physical - Constitutional Vitals: Temp Pulse Resp BP Pulse Ox 98.0 F 111 H 20 116/58 95 05/04/20 04:29 05/04/20 04:29 05/04/20 04:29 05/04/20 04:29 05/04/20 04:29 General appearance: Present: no acute distress, well-nourished - EENT Eyes: Present: PERRL - Neck Neck: Present: supple - Respiratory Respiratory effort: normal Respiratory: bilateral: CTA - Cardiovascular Rhythm: regular Heart Sounds: Present: S1 & S2 - Extremities Extremities: No edema - Abdominal General gastrointestinal: soft, non-tender, distended, normal bowel sounds - Integumentary Integumentary: Present: jaundice - Psychiatric Psychiatric: appropriate mood/affect - Neurologic Neurologic: CNII-XII intact Results - Labs CBC & Chem 7: 05/04/20 08:31 05/04/20 04:49 Labs: Laboratory Last Values WBC 11.5 K/mm3 (4.5-11.0) H 05/04/20 04:49 RBC 2.25 M/mm3 (3.65-5.03) L 05/04/20 04:49 Hgb 7.3 gm/dl (10.1-14.3) L 05/04/20 08:31 Hct 20.4 % (30.3-42.9) L 05/04/20 08:31 MCV 93 fl (79-97) 05/04/20 04:49 MCH 33 pg (28-32) H 05/04/20 04:49 MCHC 35 % (30-34) H 05/04/20 04:49 RDW 16.4 % (13.2-15.2) H 05/04/20 04:49 Plt Count 108 K/mm3 (140-440) L 05/04/20 04:49 Lymph % (Auto) Not Reportable 05/04/20 04:49 Pierce % (Auto) Not Reportable 05/04/20 04:49 Eos % (Auto) Not Reportable 05/04/20 04:49 Baso % (Auto) Not Reportable 05/04/20 04:49 Lymph # Not Reportable 05/04/20 04:49 Pierce # Not Reportable 05/04/20 04:49 Eos # Not Reportable 05/04/20 04:49 Baso # Not Reportable 05/04/20 04:49 Add Manual Diff Complete 05/04/20 04:49 Total Counted 100 05/04/20 04:49 Seg Neuts % (Manual) 32.0 % (40.0-70.0) L 05/04/20 04:49 Band Neutrophils % 0 % 05/04/20 04:49 Lymphocytes % (Manual) 47.0 % (13.4-35.0) H 05/04/20 04:49 Reactive Lymphs % (Man) 0 % 05/04/20 04:49 Monocytes % (Manual) 5.0 % (0.0-7.3) 05/04/20 04:49 Eosinophils % (Manual) 12.0 % (0.0-4.3) H 05/04/20 04:49 Basophils % (Manual) 4.0 % (0.0-1.8) H 05/04/20 04:49 Metamyelocytes % 0 % 05/04/20 04:49 Myelocytes % 0 % 05/04/20 04:49 Promyelocytes % 0 % 05/04/20 04:49 Blast Cells % 0 % 05/04/20 04:49 Nucleated RBC % Not Reportable 05/04/20 04:49 Seg Neutrophils # Not Reportable 05/04/20 04:49 Seg Neutrophils # Man 3.7 K/mm3 (1.8-7.7) 05/04/20 04:49 Band Neutrophils # 0.0 K/mm3 05/04/20 04:49 Lymphocytes # (Manual) 5.4 K/mm3 (1.2-5.4) 05/04/20 04:49 Abs React Lymphs (Man) 0.0 K/mm3 05/04/20 04:49 Monocytes # (Manual) 0.6 K/mm3 (0.0-0.8) 05/04/20 04:49 Eosinophils # (Manual) 1.4 K/mm3 (0.0-0.4) H 05/04/20 04:49 Basophils # (Manual) 0.5 K/mm3 (0.0-0.1) H 05/04/20 04:49 Metamyelocytes # 0.0 K/mm3 05/04/20 04:49 Myelocytes # 0.0 K/mm3 05/04/20 04:49 Promyelocytes # 0.0 K/mm3 05/04/20 04:49 Blast Cells # 0.0 K/mm3 05/04/20 04:49 WBC Morphology Not Reportable 05/04/20 04:49 Hypersegmented Neuts Not Reportable 05/04/20 04:49 Hyposegmented Neuts Not Reportable 05/04/20 04:49 Hypogranular Neuts Not Reportable 05/04/20 04:49 Smudge Cells Not Reportable 05/04/20 04:49 Toxic Granulation Not Reportable 05/04/20 04:49 Toxic Vacuolation Not Reportable 05/04/20 04:49 Dohle Bodies Not Reportable 05/04/20 04:49 Pelger-Huet Anomaly Not Reportable 05/04/20 04:49 Virgil Rods Not Reportable 05/04/20 04:49 Platelet Estimate Consistent w auto 05/04/20 04:49 Clumped Platelets Not Reportable 05/04/20 04:49 Plt Clumps, EDTA Not Reportable 05/04/20 04:49 Large Platelets Not Reportable 05/04/20 04:49 Giant Platelets Not Reportable 05/04/20 04:49 Platelet Satelliting Not Reportable 05/04/20 04:49 Plt Morphology Comment Not Reportable 05/04/20 04:49 RBC Morphology Not Reportable 05/04/20 04:49 Dimorphic RBCs Not Reportable 05/04/20 04:49 Polychromasia Not Reportable 05/04/20 04:49 Hypochromasia 2+ 05/04/20 04:49 Poikilocytosis Not Reportable 05/04/20 04:49 Anisocytosis 1+ 05/04/20 04:49 Microcytosis Not Reportable 05/04/20 04:49 Macrocytosis Not Reportable 05/04/20 04:49 Spherocytes Few 05/04/20 04:49 Pappenheimer Bodies Not Reportable 05/04/20 04:49 Sickle Cells Not Reportable 05/04/20 04:49 Target Cells Not Reportable 05/04/20 04:49 Tear Drop Cells Not Reportable 05/04/20 04:49 Ovalocytes Few 05/04/20 04:49 Helmet Cells Not Reportable 05/04/20 04:49 Cannon-Mcbride Bodies Not Reportable 05/04/20 04:49 [place]oma Rings Not Reportable 05/04/20 04:49 Breanna Cells Not Reportable 05/04/20 04:49 Bite Cells Not Reportable 05/04/20 04:49 Crenated Cell Not Reportable 05/04/20 04:49 Elliptocytes Not Reportable 05/04/20 04:49 Acanthocytes (Spur) Not Reportable 05/04/20 04:49 Rouleaux Not Reportable 05/04/20 04:49 Hemoglobin C Crystals Not Reportable 05/04/20 04:49 Schistocytes Not Reportable 05/04/20 04:49 Malaria parasites Not Reportable 05/04/20 04:49 Ash Bodies Not Reportable 05/04/20 04:49 Hem Pathologist Commnt No 05/04/20 04:49 PT 18.9 Sec. (12.2-14.9) H 05/03/20 10:38 INR 1.56 (0.87-1.13) H 05/03/20 10:38 APTT 40.2 Sec. (24.2-36.6) H 05/03/20 10:38 Sodium 133 mmol/L (137-145) L 05/04/20 04:49 Potassium 3.6 mmol/L (3.6-5.0) 05/04/20 04:49 Chloride 91.4 mmol/L (98-107) L 05/04/20 04:49 Carbon Dioxide 27 mmol/L (22-30) 05/04/20 04:49 Anion Gap 18 mmol/L 05/04/20 04:49 BUN 21 mg/dL (7-17) H 05/04/20 04:49 Creatinine 1.1 mg/dL (0.6-1.2) 05/04/20 04:49 Estimated GFR 60 ml/min 05/04/20 04:49 BUN/Creatinine Ratio 19 % 05/04/20 04:49 Glucose 112 mg/dL (65-100) H 05/04/20 04:49 Calcium 8.1 mg/dL (8.4-10.2) L 05/04/20 04:49 Total Bilirubin 8.20 mg/dL (0.1-1.2) H 05/03/20 10:38 AST 159 units/L (5-40) H 05/03/20 10:38 ALT 42 units/L (7-56) 05/03/20 10:38 Alkaline Phosphatase 163 units/L (35-129) H 05/03/20 10:38 Total Protein 6.4 g/dL (6.3-8.2) 05/03/20 10:38 Albumin 2.4 g/dL (3.9-5) L 05/03/20 10:38 Albumin/Globulin Ratio 0.6 % 05/03/20 10:38 Lipase 23 units/L (13-60) 05/03/20 10:38 Dunn/IV: Voiding Method Toilet IV Catheter Type [Right Hand] Peripheral IV IV Catheter Type [Left Peripheral IV Antecubital] Active Medications - Current Medications Current Medications: Generic Name Dose Route Start Last Admin Trade Name Freq PRN Reason Stop Dose Admin Acetaminophen 650 mg 05/04/20 10:12 Tylenol PO Q6H PRN Pain MILD(1-3)/Fever >100.5/ENAMORADO Sodium Chloride 1,000 mls @ 50 mls/hr 05/03/20 15:00 05/04/20 04:31 Nacl 0.9% 1000 Ml IV 50 mls/hr DIRECT FAUSTO Administration Lactulose 20 gm 05/04/20 11:00 05/04/20 10:13 Cephulac PO 20 gm BID FAUSTO Administration Multivitamins/Minerals 1 each 05/04/20 11:00 Theragran-M Tab PO QDAY FAUSTO Ondansetron HCl 4 mg 05/03/20 16:13 Zofran IV Q8H PRN Nausea And Vomiting Pantoprazole Sodium 40 mg 05/04/20 22:00 Protonix IV BID FAUSTO Rifaximin 550 mg 05/04/20 11:00 Xifaxan PO BID FAUSTO Sodium Chloride 10 ml 05/03/20 22:00 05/04/20 10:10 Sodium Chloride Flush Syringe 10 Ml IV 10 ml BID FAUSTO Administration Sodium Chloride 10 ml 05/03/20 16:13 Sodium Chloride Flush Syringe 10 Ml IV PRN PRN LINE FLUSH
[2020-05-04] MEDS: MULTIVITAMINS,THER W-MINERALS TAB PO SCH (11:29)
[2020-05-04] MEDS: RIFAXIMIN 550 MG TAB PO SCH ×2 (11:29→22:35)
[2020-05-04] MEDS ORDERED: LORazepam 2 MG/ML VIAL IV PRN (11:57)
[2020-05-04] MEDS: PANTOPRAZOLE 40 MG INJ IV SCH (22:34)
[2020-05-05] MEDS: SODIUM CHLORIDE 0.9% 1000 ML 1,000 ML IV SCH (01:17)
[2020-05-05 03:26] LABS: Hematocrit 20.6 % (30.3-42.9); Hemoglobin 7.2 gm/dl (10.1-14.3); Mean Corpuscular HGB Conc 35 % (30-34); Mean Corpuscular Volume 94 fl (79-97); Platelet Count 107 K/mm3 (140-440); Red Blood Count 2.19 M/mm3 (3.65-5.03); Red Cell Distribution Width 16.2 % (13.2-15.2)
[2020-05-05 03:41] LABS: Alanine Aminotransferase 52 units/L (7-56); Albumin 2.6 g/dL (3.9-5); Blood Urea Nitrogen 20 mg/dL (7-17); Calcium 8.2 mg/dL (8.4-10.2); Hemolysis Index 224
[2020-05-05 03:45] LABS: BUN/Creatinine Ratio 100
[2020-05-05 05:12] LABS: Basophils % (Manual) 0 % (0.0-1.8); Total Cells Counted 100
[2020-05-05 05:13] LABS: Anisocytosis 1+
[2020-05-05 05:14] LABS: Hypochromasia 1+; Macrocytosis 1+; Target Cells 1+
[2020-05-05 05:15] LABS: Platelet Estimate Consistent w Auto
[2020-05-05 05:43] LABS: Hepatitis B Surface Antigen Non-Reactive (Negative); Hepatitis C Virus Antibody Non-Reactive (NonReactive)
[2020-05-05 06:01] LABS: INR 1.45 (0.87-1.13)
[2020-05-05] MEDS: RIFAXIMIN 550 MG TAB PO SCH ×2 (09:00→22:22)
[2020-05-05] MEDS: MULTIVITAMINS,THER W-MINERALS TAB PO SCH (09:00)
[2020-05-05] MEDS: LACTULOSE 20 GM/30 ML ORAL LIQD PO SCH ×3 (09:00→23:08)
[2020-05-05] MEDS: PANTOPRAZOLE 40 MG INJ IV SCH ×2 (09:01→22:22)
[2020-05-05 13:32] LABS: Hemoglobin 6.8 gm/dl (10.1-14.3)
[2020-05-05 13:38] LABS: Hematocrit 19.2 % (30.3-42.9)
[2020-05-05] MEDS ORDERED: SODIUM CHLORIDE 0.9% 500 ML 500 ML IV ONE (13:40)
--- NOTE | 2020-05-05 13:45 | Progress Note ---
Assessment and Plan Assessment and plan: 69-year-old female with a medical history of hypertension, liver disease admitted with chief complaint of bloody vomiting. She mentioned that she has multiple episodes of coffee-ground vomiting for the past 24 hours. She reports any previous history of similar episode. She denies abdominal pain but states she has some weakness. States there is been no fevers chills diarrhea cough cold or congestion. Patient states that she has not had these symptoms in the past In the ER, her hemoglobin was 8 with elevated liver enzymes, bilirubin and INR. GI was consulted for EGD 05/03. Patient had an EGD that showed grade 1 esophageal varices with no bleeding. Bleeding appears to be a vascular lesion in the antrum and it is unclear if AVM or small ulcer with visible vessel. Patient continues on PPI. 05/04. Patient hemoglobin this morning is 7.3. Patient denies any bloody vomiting or hematochezia. Patient reportedly confused. We will check ammonia levels. Started on lactulose for now. GI following. Hepatitis panel ordered. As per GI, patient will need beta-don when stabilized for management of varices. 05/05. Hb dropped to 6.8. Will transfuse 1 unit PRBCs. GI on board - Patient Problems (1) Upper GI hemorrhage Current Visit: Yes Status: Acute Plan to address problem: Had coffee ground emesis - multiple episodes. Patient had EGD that showed stage I esophageal varices with no bleeding. But she has bleeding from visible vessel which could be AVM or gastric ulcer with vessel. Continue PPI-switch from drip to IV twice daily. Trend H/H Zofran PRN for vomiting Patient will need to have a beta-don for esophageal varices when stable. GI recommendations appreciated (2) Hyponatremia Current Visit: Yes Status: Acute Plan to address problem: Likely from hypervolemia from liver cirrhosis Improved Continue to monitor sodium levels (3) Hyperbilirubinemia Current Visit: Yes Status: Acute Plan to address problem: Likely from alcohol abuse Improved Will continue to monitor (4) Hypertension Current Visit: Yes Status: Acute Plan to address problem: Monitor BP (5) Alcoholic liver disease Current Visit: Yes Status: Acute Plan to address problem: She has a history of alcohol abuse. She has elevated LFTs with elevated bilirubin Her INR is also elevated. Patient has been advised to stop alcohol use Hepatitis panel - shows no hepatitis GI following (6) Acute metabolic encephalopathy Current Visit: Yes Status: Acute Plan to address problem: Improved (7) DVT prophylaxis Current Visit: Yes Status: Acute Plan to address problem: No chemical prophylaxis for now due to GI bleed History Interval history: See assessment and plan Hospitalist Physical - Constitutional Vitals: Temp Pulse Resp BP Pulse Ox 97.9 F 104 H 22 130/62 97 05/05/20 11:56 05/05/20 11:56 05/05/20 11:56 05/05/20 11:56 05/05/20 11:56 General appearance: Present: no acute distress, well-nourished - EENT Eyes: Present: PERRL - Respiratory Respiratory: bilateral: CTA - Cardiovascular Rhythm: regular Heart Sounds: Present: S1 & S2 - Extremities Extremities: no ischemia - Abdominal General gastrointestinal: soft, non-tender, non-distended, normal bowel sounds - Psychiatric Psychiatric: appropriate mood/affect - Neurologic Neurologic: CNII-XII intact Results - Labs CBC & Chem 7: 05/05/20 12:51 05/05/20 02:09 Labs: Laboratory Last Values WBC 8.8 K/mm3 (4.5-11.0) 05/05/20 02:09 RBC 2.19 M/mm3 (3.65-5.03) L 05/05/20 02:09 Hgb 6.8 gm/dl (10.1-14.3) L 05/05/20 12:51 Hct 19.2 % (30.3-42.9) L* 05/05/20 12:51 MCV 94 fl (79-97) 05/05/20 02:09 MCH 33 pg (28-32) H 05/05/20 02:09 MCHC 35 % (30-34) H 05/05/20 02:09 RDW 16.2 % (13.2-15.2) H 05/05/20 02:09 Plt Count 107 K/mm3 (140-440) L 05/05/20 02:09 Lymph % (Auto) Not Reportable 05/04/20 04:49 Gem % (Auto) [employer] 05/05/20 02:09 Eos % (Auto) Not Reportable 05/04/20 04:49 Baso % (Auto) Not Reportable 05/04/20 04:49 Lymph # Not Reportable 05/04/20 04:49 Gem # Not Reportable 05/04/20 04:49 Eos # Not Reportable 05/04/20 04:49 Baso # Not Reportable 05/04/20 04:49 Add Manual Diff Complete 05/05/20 02:09 Total Counted 100 05/05/20 02:09 Seg Neuts % (Manual) 72.0 % (40.0-70.0) H 05/05/20 02:09 Band Neutrophils % 0 % 05/05/20 02:09 Lymphocytes % (Manual) 17.0 % (13.4-35.0) 05/05/20 02:09 Reactive Lymphs % (Man) 0 % 05/05/20 02:09 Monocytes % (Manual) 10.0 % (0.0-7.3) H 05/05/20 02:09 Eosinophils % (Manual) 1.0 % (0.0-4.3) 05/05/20 02:09 Basophils % (Manual) 0 % (0.0-1.8) 05/05/20 02:09 Metamyelocytes % 0 % 05/05/20 02:09 Myelocytes % 0 % 05/05/20 02:09 Promyelocytes % 0 % 05/05/20 02:09 Blast Cells % 0 % 05/05/20 02:09 Nucleated RBC % Not Reportable 05/05/20 02:09 Seg Neutrophils # Not Reportable 05/04/20 04:49 Seg Neutrophils # Man 6.3 K/mm3 (1.8-7.7) 05/05/20 02:09 Band Neutrophils # 0.0 K/mm3 05/05/20 02:09 Lymphocytes # (Manual) 1.5 K/mm3 (1.2-5.4) 05/05/20 02:09 Abs React Lymphs (Man) 0.0 K/mm3 05/05/20 02:09 Monocytes # (Manual) 0.9 K/mm3 (0.0-0.8) H 05/05/20 02:09 Eosinophils # (Manual) 0.1 K/mm3 (0.0-0.4) 05/05/20 02:09 Basophils # (Manual) 0.0 K/mm3 (0.0-0.1) 05/05/20 02:09 Metamyelocytes # 0.0 K/mm3 05/05/20 02:09 Myelocytes # 0.0 K/mm3 05/05/20 02:09 Promyelocytes # 0.0 K/mm3 05/05/20 02:09 Blast Cells # 0.0 K/mm3 05/05/20 02:09 WBC Morphology Not Reportable 05/05/20 02:09 Hypersegmented Neuts Not Reportable 05/05/20 02:09 Hyposegmented Neuts Not Reportable 05/05/20 02:09 Hypogranular Neuts Not Reportable 05/05/20 02:09 Smudge Cells Not Reportable 05/05/20 02:09 Toxic Granulation Not Reportable 05/05/20 02:09 Toxic Vacuolation Not Reportable 05/05/20 02:09 Dohle Bodies Not Reportable 05/05/20 02:09 Pelger-Huet Anomaly Not Reportable 05/05/20 02:09 Virgil Rods Not Reportable 05/05/20 02:09 Platelet Estimate Consistent w auto 05/05/20 02:09 Clumped Platelets Not Reportable 05/05/20 02:09 Plt Clumps, EDTA Not Reportable 05/05/20 02:09 Large Platelets Not Reportable 05/05/20 02:09 Giant Platelets Not Reportable 05/05/20 02:09 Platelet Satelliting Not Reportable 05/05/20 02:09 Plt Morphology Comment Not Reportable 05/05/20 02:09 RBC Morphology Not Reportable 05/05/20 02:09 Dimorphic RBCs Not Reportable 05/05/20 02:09 Polychromasia Not Reportable 05/05/20 02:09 Hypochromasia 1+ 05/05/20 02:09 Poikilocytosis Not Reportable 05/05/20 02:09 Anisocytosis 1+ 05/05/20 02:09 Microcytosis Not Reportable 05/05/20 02:09 Macrocytosis 1+ 05/05/20 02:09 Spherocytes Not Reportable 05/05/20 02:09 Pappenheimer Bodies Not Reportable 05/05/20 02:09 Sickle Cells Not Reportable 05/05/20 02:09 Target Cells 1+ 05/05/20 02:09 Tear Drop Cells Not Reportable 05/05/20 02:09 Ovalocytes Not Reportable 05/05/20 02:09 Helmet Cells Not Reportable 05/05/20 02:09 [place] Bodies Not Reportable 05/05/20 02:09 [place] Rings Not Reportable 05/05/20 02:09 [place] Cells Not Reportable 05/05/20 02:09 Bite Cells Not Reportable 05/05/20 02:09 Crenated Cell Not Reportable 05/05/20 02:09 Elliptocytes Not Reportable 05/05/20 02:09 Acanthocytes (Spur) Not Reportable 05/05/20 02:09 Rouleaux Not Reportable 05/05/20 02:09 Hemoglobin C Crystals Not Reportable 05/05/20 02:09 Schistocytes Not Reportable 05/05/20 02:09 Malaria parasites Not Reportable 05/05/20 02:09 Ash Bodies Not Reportable 05/05/20 02:09 Hem Pathologist Commnt No 05/05/20 02:09 PT 17.8 Sec. (12.2-14.9) H 05/05/20 04:23 INR 1.45 (0.87-1.13) H 05/05/20 04:23 APTT 40.2 Sec. (24.2-36.6) H 05/03/20 10:38 Sodium 134 mmol/L (137-145) L 05/05/20 02:09 Potassium 4.7 mmol/L (3.6-5.0) D 05/05/20 02:09 Chloride 95.3 mmol/L (98-107) L 05/05/20 02:09 Carbon Dioxide 28 mmol/L (22-30) 05/05/20 02:09 Anion Gap 15 mmol/L 05/05/20 02:09 BUN 20 mg/dL (7-17) H 05/05/20 02:09 Creatinine 0.2 mg/dL (0.6-1.2) L D 05/05/20 02:09 Estimated GFR > 60 ml/min 05/05/20 02:09 BUN/Creatinine Ratio 100 % 05/05/20 02:09 Glucose 91 mg/dL (65-100) 05/05/20 02:09 Calcium 8.2 mg/dL (8.4-10.2) L 05/05/20 02:09 Total Bilirubin 6.30 mg/dL (0.1-1.2) H 05/05/20 02:09 AST 201 units/L (5-40) H 05/05/20 02:09 ALT 52 units/L (7-56) 05/05/20 02:09 Alkaline Phosphatase 146 units/L (35-129) H 05/05/20 02:09 Ammonia 49.0 umol/L (25-60) 05/05/20 02:09 Total Protein 7.0 g/dL (6.3-8.2) 05/05/20 02:09 Albumin 2.6 g/dL (3.9-5) L 05/05/20 02:09 Albumin/Globulin Ratio 0.6 % 05/05/20 02:09 Lipase 23 units/L (13-60) 05/03/20 10:38 Vitamin B12 > 2000 pg/mL (211-911) H 05/05/20 04:23 Hepatitis A IgM Ab Non-reactive (NonReactive) 05/05/20 04:23 Hep Bs Antigen Non-reactive (Negative) 05/05/20 04:23 Hep B Core IgM Ab Non-reactive (NonReactive) 05/05/20 04:23 Hepatitis C Antibody Non-reactive (NonReactive) 05/05/20 04:23 Dunn/IV: Voiding Method Toilet IV Catheter Type [Right Hand] Peripheral IV IV Catheter Type [Left Peripheral IV Antecubital] Active Medications - Current Medications Current Medications: Generic Name Dose Route Start Last Admin Trade Name Freq PRN Reason Stop Dose Admin Acetaminophen 650 mg 05/04/20 10:12 Tylenol PO Q6H PRN Pain MILD(1-3)/Fever >100.5/ENAMORADO Sodium Chloride 1,000 mls @ 50 mls/hr 05/03/20 15:00 05/05/20 01:17 Nacl 0.9% 1000 Ml IV 50 mls/hr DIRECT FAUSTO Administration Sodium Chloride 500 mls @ 0 mls/hr 05/05/20 13:40 Nacl 0.9% 500 Ml IV 05/05/20 13:41 ONCE ONE As Directed Lorazepam 2 mg 05/04/20 11:57 05/04/20 12:35 Ativan IV 1 mg Q4H PRN Administration Agitation Multivitamins/Minerals 1 each 05/04/20 11:00 05/05/20 09:00 Theragran-M Tab PO 1 each QDAY FAUSTO Administration Ondansetron HCl 4 mg 05/03/20 16:13 Zofran IV Q8H PRN Nausea And Vomiting Pantoprazole Sodium 40 mg 05/04/20 22:00 05/05/20 09:01 Protonix IV 40 mg BID FAUSTO Administration Rifaximin 550 mg 05/04/20 11:00 05/05/20 09:00 Xifaxan PO 550 mg BID FAUSTO Administration Sodium Chloride 10 ml 05/03/20 22:00 05/05/20 09:00 Sodium Chloride Flush Syringe 10 Ml IV 10 ml BID FAUSTO Administration Sodium Chloride 10 ml 05/03/20 16:13 Sodium Chloride Flush Syringe 10 Ml IV PRN PRN LINE FLUSH
--- NOTE | 2020-05-05 14:28 | Gastroenterology Progress Note ---
Assessment and Plan Regarding confusion will add on lactulose for suspected hepatic encephalopathy Elevated liver enzymes pattern consistent with alcoholic liver disease, acute hep panel negative Alcohol cessation education provided Please avoid benzodiazepines and opiates as much as possible as these will worsen her confusion No overt bleeding, however hemoglobin with slight decrease today. May just be equilibration, continue to monitor closely, if overt bleeding or continued significant drop in hemoglobin we will repeat endoscopic evaluation - Patient Problems (1) Alcoholic liver disease Current Visit: Yes Status: Acute (2) Cirrhosis Current Visit: Yes Status: Acute (3) Hyperbilirubinemia Current Visit: Yes Status: Acute (4) Upper GI hemorrhage Current Visit: Yes Status: Acute Subjective Date of service: 05/05/20 Principal diagnosis: GIB, Cirrhosis Interval history: Patient denies overt bleeding or abdominal pain however she is slurring her speech somewhat and appears mildly confused though she is oriented Objective - Constitutional Vitals: Temp Pulse Resp BP Pulse Ox 97.9 F 104 H 22 130/62 97 05/05/20 11:56 05/05/20 11:56 05/05/20 11:56 05/05/20 11:56 05/05/20 11:56 General appearance: no acute distress - EENT Eyes: PERRL ENT: hearing intact - Neck Neck: supple - Respiratory Respiratory effort: normal - Cardiovascular Rhythm: regular - Gastrointestinal General gastrointestinal: Present: soft - Integumentary Integumentary: Present: dry - Musculoskeletal Musculoskeletal: normal - Neurologic Neurological: oriented to person, oriented to place - Labs CBC & Chem 7: 05/05/20 12:51 05/05/20 02:09 Labs: Laboratory Results - last 24 hr 05/05/20 05/05/20 05/05/20 02:09 02:09 02:09 WBC 8.8 RBC 2.19 L Hgb 7.2 L Hct 20.6 L MCV 94 MCH 33 H MCHC 35 H RDW 16.2 H Plt Count 107 L [place] % (Auto) Rn Telehealth Add Manual Diff Complete Total Counted 100 Seg Neuts % (Manual) 72.0 H Band Neutrophils % 0 Lymphocytes % (Manual) 17.0 Reactive Lymphs % (Man) 0 Monocytes % (Manual) 10.0 H Eosinophils % (Manual) 1.0 Basophils % (Manual) 0 Metamyelocytes % 0 Myelocytes % 0 Promyelocytes % 0 Blast Cells % 0 Nucleated RBC % Not Reportable Seg Neutrophils # Man 6.3 Band Neutrophils # 0.0 Lymphocytes # (Manual) 1.5 Abs React Lymphs (Man) 0.0 Monocytes # (Manual) 0.9 H Eosinophils # (Manual) 0.1 Basophils # (Manual) 0.0 Metamyelocytes # 0.0 Myelocytes # 0.0 Promyelocytes # 0.0 Blast Cells # 0.0 WBC Morphology Not Reportable Hypersegmented Neuts Not Reportable Hyposegmented Neuts Not Reportable Hypogranular Neuts Not Reportable Smudge Cells Not Reportable Toxic Granulation Not Reportable Toxic Vacuolation Not Reportable Dohle Bodies Not Reportable Pelger-Huet Anomaly Not Reportable Virgil Rods Not Reportable Platelet Estimate Consistent w auto Clumped Platelets Not Reportable Plt Clumps, EDTA Not Reportable Large Platelets Not Reportable Giant Platelets Not Reportable Platelet Satelliting Not Reportable Plt Morphology Comment Not Reportable RBC Morphology Not Reportable Dimorphic RBCs Not Reportable Polychromasia Not Reportable Hypochromasia 1+ Poikilocytosis Not Reportable Anisocytosis 1+ Microcytosis Not Reportable Macrocytosis 1+ Spherocytes Not Reportable Pappenheimer Bodies Not Reportable Sickle Cells Not Reportable Target Cells 1+ Tear Drop Cells Not Reportable Ovalocytes Not Reportable Helmet Cells Not Reportable [place] Bodies Not Reportable [place] Rings Not Reportable [place] Cells Not Reportable Bite Cells Not Reportable Crenated Cell Not Reportable Elliptocytes Not Reportable Acanthocytes (Spur) Not Reportable Rouleaux Not Reportable Hemoglobin C Crystals Not Reportable Schistocytes Not Reportable Malaria parasites Not Reportable Ash Bodies Not Reportable Hem Pathologist Commnt No PT INR Sodium 134 L Potassium 4.7 D Chloride 95.3 L Carbon Dioxide 28 Anion Gap 15 BUN 20 H Creatinine 0.2 L D Estimated GFR > 60 BUN/Creatinine Ratio 100 Glucose 91 Calcium 8.2 L Total Bilirubin 6.30 H AST 201 H ALT 52 Alkaline Phosphatase 146 H Ammonia 49.0 Total Protein 7.0 Albumin 2.6 L Albumin/Globulin Ratio 0.6 Vitamin B12 Hepatitis A IgM Ab Hep Bs Antigen Hep B Core IgM Ab Hepatitis C Antibody 05/05/20 05/05/20 05/05/20 04:23 04:23 04:23 WBC RBC Hgb Hct MCV MCH MCHC RDW Plt Count [place] % (Auto) Add Manual Diff Total Counted Seg Neuts % (Manual) Band Neutrophils % Lymphocytes % (Manual) Reactive Lymphs % (Man) Monocytes % (Manual) Eosinophils % (Manual) Basophils % (Manual) Metamyelocytes % Myelocytes % Promyelocytes % Blast Cells % Nucleated RBC % Seg Neutrophils # Man Band Neutrophils # Lymphocytes # (Manual) Abs React Lymphs (Man) Monocytes # (Manual) Eosinophils # (Manual) Basophils # (Manual) Metamyelocytes # Myelocytes # Promyelocytes # Blast Cells # WBC Morphology Hypersegmented Neuts Hyposegmented Neuts Hypogranular Neuts Smudge Cells Toxic Granulation Toxic Vacuolation Dohle Bodies Pelger-Huet Anomaly [place] Rods Platelet Estimate Clumped Platelets Plt Clumps, EDTA Large Platelets Giant Platelets Platelet Satelliting Plt Morphology Comment RBC Morphology Dimorphic RBCs Polychromasia Hypochromasia Poikilocytosis Anisocytosis Microcytosis Macrocytosis Spherocytes Pappenheimer Bodies Sickle Cells Target Cells Tear Drop Cells Ovalocytes Helmet Cells [place] Bodies [place] Rings [place] Cells Bite Cells Crenated Cell Elliptocytes Acanthocytes (Spur) Rouleaux Hemoglobin C Crystals Schistocytes Malaria parasites Ash Bodies Hem Pathologist Commnt PT 17.8 H INR 1.45 H Sodium Potassium Chloride Carbon Dioxide Anion Gap BUN Creatinine Estimated GFR BUN/Creatinine Ratio Glucose Calcium Total Bilirubin AST ALT Alkaline Phosphatase Ammonia Total Protein Albumin Albumin/Globulin Ratio Vitamin B12 > 2000 H Hepatitis A IgM Ab Non-reactive Hep Bs Antigen Non-reactive Hep B Core IgM Ab Non-reactive Hepatitis C Antibody Non-reactive 05/05/20 12:51 WBC RBC Hgb 6.8 L Hct 19.2 L* MCV MCH MCHC RDW Plt Count [place] % (Auto) Add Manual Diff Total Counted Seg Neuts % (Manual) Band Neutrophils % Lymphocytes % (Manual) Reactive Lymphs % (Man) Monocytes % (Manual) Eosinophils % (Manual) Basophils % (Manual) Metamyelocytes % Myelocytes % Promyelocytes % Blast Cells % Nucleated RBC % Seg Neutrophils # Man Band Neutrophils # Lymphocytes # (Manual) Abs React Lymphs (Man) Monocytes # (Manual) Eosinophils # (Manual) Basophils # (Manual) Metamyelocytes # Myelocytes # Promyelocytes # Blast Cells # WBC Morphology Hypersegmented Neuts Hyposegmented Neuts Hypogranular Neuts Smudge Cells Toxic Granulation Toxic Vacuolation Dohle Bodies Pelger-Huet Anomaly [place] Rods Platelet Estimate Clumped Platelets Plt Clumps, EDTA Large Platelets Giant Platelets Platelet Satelliting Plt Morphology Comment RBC Morphology Dimorphic RBCs Polychromasia Hypochromasia Poikilocytosis Anisocytosis Microcytosis Macrocytosis Spherocytes Pappenheimer Bodies Sickle Cells Target Cells Tear Drop Cells Ovalocytes Helmet Cells [place] Bodies [place] Rings [place] Cells Bite Cells Crenated Cell Elliptocytes Acanthocytes (Spur) Rouleaux Hemoglobin C Crystals Schistocytes Malaria parasites Ash Bodies Hem Pathologist Commnt PT INR Sodium Potassium Chloride Carbon Dioxide Anion Gap BUN Creatinine Estimated GFR BUN/Creatinine Ratio Glucose Calcium Total Bilirubin AST ALT Alkaline Phosphatase Ammonia Total Protein Albumin Albumin/Globulin Ratio Vitamin B12 Hepatitis A IgM Ab Hep Bs Antigen Hep B Core IgM Ab Hepatitis C Antibody
[2020-05-06] MEDS: LACTULOSE 20 GM/30 ML ORAL LIQD PO SCH ×2 (05:14→13:32)
[2020-05-06 06:04] LABS: Hemoglobin 7.8 gm/dl (10.1-14.3)
--- NOTE | 2020-05-06 09:42 | Gastroenterology Progress Note ---
Assessment and Plan Regarding confusion continue lactulose for suspected hepatic encephalopathy, MS is moderately improved for me today during my exam Elevated liver enzymes pattern consistent with alcoholic liver disease, acute hep panel negative Alcohol cessation education provided Please avoid benzodiazepines and opiates as much as possible as these will worsen her confusion No overt bleeding, hemoglobin came up appropriately status post blood transfu rusty so the drop yesterday was likely just equilibration, continue to monitor closely, if overt bleeding or continued significant drop in hemoglobin we will repeat endoscopic evaluation - Patient Problems (1) Alcoholic liver disease Current Visit: Yes Status: Acute (2) Cirrhosis Current Visit: Yes Status: Acute (3) Hyperbilirubinemia Current Visit: Yes Status: Acute (4) Upper GI hemorrhage Current Visit: Yes Status: Acute Subjective Date of service: 05/06/20 Principal diagnosis: GIB, Cirrhosis Interval history: Patient denies overt bleeding or abdominal pain she also reports she did not have a bowel movement today Nursing notes document patient declined medication Objective - Constitutional Vitals: Temp Pulse Resp BP Pulse Ox 99.3 F 107 H 16 138/82 97 05/06/20 04:33 05/06/20 04:33 05/06/20 04:33 05/06/20 04:33 05/06/20 04:33 General appearance: no acute distress - EENT Eyes: EOM intact - Neck Neck: supple - Respiratory Respiratory effort: normal - Cardiovascular Rhythm: regular - Labs CBC & Chem 7: 05/06/20 03:57 05/05/20 02:09 Labs: Laboratory Results - last 24 hr 05/05/20 05/05/20 05/06/20 12:51 16:00 03:57 Hgb 6.8 L 7.8 L Hct 19.2 L* 22.0 L Blood Type O POSITIVE Antibody Screen Negative Crossmatch See Detail
[2020-05-06] MEDS: MULTIVITAMINS,THER W-MINERALS TAB PO SCH (10:07)
[2020-05-06] MEDS: PANTOPRAZOLE 40 MG INJ IV SCH (10:07)
[2020-05-06] MEDS: RIFAXIMIN 550 MG TAB PO SCH (10:07)
[2020-05-06 10:45] LABS: Hematocrit 23.2 % (30.3-42.9)
--- NOTE | 2020-05-06 11:54 | Discharge Summary ---
Providers - Providers Date of Admission: 05/03/20 16:13 Date of discharge: 05/06/20 Attending physician: THOMAS POWERS 05/03/20 12:47 Consult to Physician [CONS] Urgent Comment: Consulting Provider: LULU HUGHES Physician Instructions: Reason For Exam: gi bleed 05/05/20 15:17 Consult to Dietitian/Nutrition [CONS] Routine Physician Instructions: Reason For Exam: Reason for Consult: Poor oral intake 05/05/20 15:24 Physical Therapy Evaluation and Treat [CONS] Routine Comment: Reason For Exam: weakness 05/06/20 09:54 Occupational Therapy Evaluate and Treat [CONS] Routine Comment: Reason For Exam: evaluate and treat Primary care physician: WILLIAN BENSON Hospitalization Reason for admission: hematemesis Condition: Stable Hospital course: 69-year-old female with a medical history of hypertension, liver disease admitted with chief complaint of bloody vomiting. She mentioned that she has multiple episodes of coffee-ground vomiting for the past 24 hours. She reports any previous history of similar episode. She denies abdominal pain but states she has some weakness. States there is been no fevers chills diarrhea cough cold or congestion. Patient states that she has not had these symptoms in the past In the ER, her hemoglobin was 8 with elevated liver enzymes, bilirubin and INR. GI was consulted for EGD 05/03. Patient had an EGD that showed grade 1 esophageal varices with no bleeding. Bleeding appears to be a vascular lesion in the antrum and it is unclear if AVM or small ulcer with visible vessel. Patient continues on PPI. 05/04. Patient hemoglobin this morning is 7.3. Patient denies any bloody vomiting or hematochezia. Patient reportedly confused. We will check ammonia levels. Started on lactulose for now. GI following. Hepatitis panel ordered. As per GI, patient will need beta-don when stabilized for management of varices. 05/05. Hb dropped to 6.8. Will transfuse 1 unit PRBCs. GI on board 05/06. Her mental status is much improved. Her hemoglobin remains stable. She will be discharged to follow up with GI. She will continue lactulose and rifaximin. Disposition: [id number] HOME UNDER HOME HLTH - Discharge Diagnoses (1) Upper GI hemorrhage Status: Acute (2) Hyponatremia Status: Acute (3) Hyperbilirubinemia Status: Acute (4) Hypertension Status: Acute (5) Alcoholic liver disease Status: Acute (6) Acute metabolic encephalopathy Status: Acute (7) DVT prophylaxis Status: Acute Core Measure Documentation - Palliative Care Palliative Care/ Comfort Measures: Not Applicable - Core Measures Any of the following diagnoses?: none Exam - Constitutional Vitals: Temp Pulse Resp BP Pulse Ox 99.3 F 107 H 16 138/82 97 05/06/20 04:05/06/20 04:05/06/20 04:05/06/20 04:05/06/20 04:33 General appearance: Present: no acute distress, well-nourished - EENT Eyes: Present: PERRL ENT: hearing intact, clear oral mucosa - Neck Neck: Present: supple, normal ROM - Respiratory Respiratory effort: normal Respiratory: bilateral: CTA - Cardiovascular Heart Sounds: Present: S1 & S2. Absent: rub, click - Extremities Extremities: pulses symmetrical, No edema Peripheral Pulses: within normal limits - Abdominal General gastrointestinal: Present: soft, non-tender, non-distended, normal bowel sounds Female genitourinary: Present: normal - Integumentary Integumentary: Present: clear, warm, dry - Musculoskeletal Musculoskeletal: gait normal, strength equal bilaterally - Psychiatric Psychiatric: appropriate mood/affect, intact judgment & insight - Neurologic Neurologic: CNII-XII intact, moves all extremities Plan Activity: no restrictions Additional Instructions: Continue rifaximin and lactulose. Follow up with gastroenterologoy in the office. Stop alcohol abuse. You will need to have CT abdomen or MRI of the liver to evaluate for liver abnormality in 1-2 weeks Follow up with: WILLIAN BENSON MD [Primary Care Provider] - 3-5 Days AYSHA KOHLER MD [Staff Physician] - 7 Days Forms: Accompanied Note Prescriptions: Lactulose [Cephulac] 20 gm PO Q6HR #200 ml Multivitamin Tab W-MINERAL [Multiple Vitamin/Mineral (Theragran M)] 1 each PO QDAY #30 tablet Pantoprazole [Protonix TAB] 40 mg PO BID 30 Days tablet Rifaximin [Xifaxan] 550 mg PO BID #30 tablet
[2020-05-06 14:15] VITALS: BP 131/75
[2020-05-07] MEDS ORDERED: PANTOPRAZOLE 40 MG TAB PO SCH (10:00)
== END 2020-05-06 16:55 | disposition home health service (06) | DRG 377 ==
LOC: ED 08:48 → 3A 12:32 → OBSVTOIN 16:13
PROVIDERS: ADMIT Internal Medicine; ATTEND Internal Medicine
PROC: 0W3P8ZZ Control Bleeding in Gastrointestinal Tract, Via Natural or Artificial Opening Endoscopic (ICD-10-PCS; 2020-05-03)
PROC: 30233N1 Transfusion of Nonautologous Red Blood Cells into Peripheral Vein, Percutaneous Approach (ICD-10-PCS; principal; 2020-05-05)
DX: K29.71 Gastritis, unspecified, with bleeding (principal); G93.41 Metabolic encephalopathy; E87.1 Hypo-osmolality and hyponatremia; E86.0 Dehydration; I85.00 Esophageal varices without bleeding; I10 Essential (primary) hypertension; E11.9 Type 2 diabetes mellitus without complications; F17.210 Nicotine dependence, cigarettes, uncomplicated; M19.90 Unspecified osteoarthritis, unspecified site; E80.6 Other disorders of bilirubin metabolism; D64.9 Anemia, unspecified; K70.9 Alcoholic liver disease, unspecified; K74.60 Unspecified cirrhosis of liver; K44.9 Diaphragmatic hernia without obstruction or gangrene; Z98.51 Tubal ligation status
CPT/HCPCS: 36415; 74018; 74177; 80048; 80053; 80074; 82140; 82607; 83690; 85007; 85014; 85018; 85025; 85610; 85730; 86850; 86900; 86901; 86920; 96365; 96375; 99406; G0378; C9113; J2060; J2405; J2704; J3480; J7030; J7040; P9016; Q9967